=== PATIENT | female | born 1945 | race Caucasian/White ===

== ENCOUNTER 2024-10-15 11:18 | Inpatient (IN) | payer MEDICARE, BC ==
[~2024-10-15] VITALS: Ht 156.2 cm; Wt 64.6 kg
[2024-10-15] MEDS ORDERED: ONDANSETRON HCL/PF 4 MG/2 ML VIAL ONE (12:00)
[2024-10-15] MEDS: IV NS 0.9% 1,000 ML BAG IV ONE (12:04)
[2024-10-15] MEDS: ONDANSETRON HCL/PF 4 MG/2 ML VIAL IVP ONE (12:05)
[2024-10-15 13:50] LABS: APPEARANCE,URINE CLEAR (CLEAR); BILIRUBIN,URINE NEGATIVE (NEGATIVE); BLOOD, URINE 2+ Ery/uL (NEGATIVE); COLOR,URINE YELLOW (YELLOW); KETONES,URINE NEGATIVE (NEGATIVE); LEUKOCYTE ESTERASE ,URINE TRACE (NEGATIVE); NITRITE, URINE NEGATIVE (NEGATIVE); PH,URINE 7.5 (5.0-8.0); PROTEIN,URINE 2+ mg/dl (NEGATIVE); UGLUCOSE 1+ mg/dL (NEGATIVE); UROBILINOGEN,URINE 0.2 EU/dL (0.2)
[2024-10-15 13:57] LABS: ADD URINE CULTURE YES; BACTERIA,URINE Few /HPF (None Seen); SQUAMOUS EPITHELIAL CELL,UR Rare /HPF (None Seen)
[2024-10-15] MEDS: AZITHROMYCIN 500 MG in IV D5W 250 ML IV ONE (14:00)
[2024-10-15 14:19] LABS: BASOPHILS # (AUTO) 0.1 K/uL (0.0-0.2); BASOPHILS % (AUTO) 0.7 % (0.0-2.0); HEMATOCRIT 41 % (33-45); HEMOGLOBIN 13.6 g/dL (11.5-14.8); LYMPHOCYTES # (AUTO) 0.2 K/uL (0.8-4.8); LYMPHOCYTES % (AUTO) 1.3 % (20.0-44.0); MEAN CORPUSCULAR HEMOGLOBIN 36 PG (26.0-33.0); MEAN CORPUSCULAR HGB CONC 33 g/dl (31.0-36.0); MEAN CORPUSCULAR VOLUME 108 fL (82-100); MONOCYTES # (AUTO) 0.3 K/uL (0.1-1.30); MONOCYTES % (AUTO) 2.8 % (2.0-12.0); NEUTROPHILS # (AUTO) 11.7 K/uL (1.8-8.9); NEUTROPHILS % (AUTO) 95.2 % (43.0-81.0); PLATELET COUNT (AUTO) 104 K/uL (150-450); RED BLOOD CELL COUNT(AUTO) 3.82 MIL/uL (4.0-5.2); RED CELL DISTRIBUTION WIDTH 13.9 % (11.5-15.0); WHITE BLOOD COUNT (AUTO) 12.3 K/uL (4.3-11.0)
[2024-10-15] MEDS: CEFTRIAXONE 1GM BAG (ER ONLY) 1 GM/50 ML PIGGYBACK IV ONE (14:28)
[2024-10-15] MEDS: CEFTRIAXONE 1 G in IV NS 0.9% 50 ML IV ONE (14:29)
[2024-10-15 14:31] LABS: ALANINE AMINOTRANSFERASE 31 U/L (12-78); ALBUMIN 3.8 g/dL (3.4-5.0); ALKALINE PHOSPHATASE 73 U/L (46-116); ASPARTATE AMINOTRANSFERASE 20 U/L (15-37); BILIRUBIN,DIRECT 0.1 mg/dL (0.0-0.2); BILIRUBIN,TOTAL 0.5 mg/dL (0.2-1.0); CALCIUM, SERUM 9.3 mg/dL (8.5-10.1); CARBON DIOXIDE 28 mmol/L (21-32); CHLORIDE 105 mmol/L (98-107); CREATININE 0.8 mg/dL (0.6-1.3); GLUCOSE 126 mg/dL (74-106); LIPASE 29 U/L (16-77); POTASSIUM 3.9 mmol/L (3.5-5.1); SODIUM SERUM 141 mmol/L (136-145); TOTAL PROTEIN, SERUM 7.5 g/dL (6.4-8.2); UREA NITROGEN, BLOOD 19 mg/dL (7-18)
[2024-10-15 14:36] LABS: LACTIC ACID 2.5 mmol/L (0.4-2.0)
[2024-10-15] MEDS ORDERED: CREA100P6 PO (14:54)
[2024-10-15] MEDS ORDERED: LEVO112T5 PO (14:54)
[2024-10-15] MEDS ORDERED: [UNRECOGNIZED DRUG - OTHER] PO (14:54)
[2024-10-15] MEDS ORDERED: [UNRECOGNIZED DRUG - REMARK] SL (14:54)
[2024-10-15] MEDS ORDERED: [UNRECOGNIZED DRUG - OTHER] PO (14:54)
[2024-10-15] MEDS ORDERED: PRAS1TAB4 PO (14:54)
[2024-10-15] MEDS ORDERED: [UNRECOGNIZED DRUG - OTHER] PO (14:54)
[2024-10-15] MEDS ORDERED: METF-866 PO (14:54)
[2024-10-15] MEDS ORDERED: IRON BISGLYCINATE PO (14:54)
[2024-10-15] MEDS ORDERED: [UNRECOGNIZED DRUG - OTHER] PO (14:54)
[2024-10-15] MEDS ORDERED: [UNRECOGNIZED DRUG - CODE] PO (14:54)
[2024-10-15] MEDS ORDERED: SACC250C PO (14:54)
[2024-10-15] MEDS ORDERED: [UNRECOGNIZED DRUG - OTHER] PO (14:54)
[2024-10-15] MEDS ORDERED: [UNRECOGNIZED DRUG - OTHER] PO (14:54)
[2024-10-15] MEDS ORDERED: [UNRECOGNIZED DRUG - OTHER] PO (14:54)
[2024-10-15] MEDS ORDERED: [UNRECOGNIZED DRUG - OTHER] SL (14:54)
[2024-10-15] MEDS ORDERED: HYDR-4316 PO (14:54)
[2024-10-15] MEDS ORDERED: ACET600C PO (14:54)
[2024-10-15] MEDS ORDERED: [UNRECOGNIZED DRUG - OTHER] PO (14:54)
[2024-10-15] MEDS ORDERED: [UNRECOGNIZED DRUG - OTHER] PO (14:54)
[2024-10-15] MEDS ORDERED: ATOR40TA PO (14:54)
[2024-10-15] MEDS ORDERED: CHOL100062 PO (14:54)
[2024-10-15] MEDS ORDERED: SERT50TA PO (14:54)
[2024-10-15] MEDS ORDERED: MELA3TAB41 PO (14:54)
[2024-10-15] MEDS ORDERED: NIAC500T40 PO (14:54)
[2024-10-15] MEDS ORDERED: UBID200C32 PO (14:54)
[2024-10-15] MEDS ORDERED: HYDR20TA23 PO (14:54)
[2024-10-15] MEDS ORDERED: MODAFINIL PO (14:54)
[2024-10-15] MEDS ORDERED: [UNRECOGNIZED DRUG - OTHER] PO (14:54)
[2024-10-15] MEDS ORDERED: ASCO100058 PO (14:54)
[2024-10-15] MEDS ORDERED: MAG PO (14:54)
[2024-10-15] MEDS ORDERED: LOSA50TA39 PO (14:54)
[2024-10-15] MEDS ORDERED: 5-HTP PO (14:54)
[2024-10-15] MEDS ORDERED: FAMO20TA80 PO (14:54)
[2024-10-15] MEDS ORDERED: METHYL PROTECT PO (14:54)
[2024-10-15] MEDS ORDERED: [UNRECOGNIZED DRUG - OTHER] PO (14:54)
[2024-10-15] MEDS ORDERED: PROG100C15 PO (14:54)
[2024-10-15] MEDS ORDERED: ONDANSETRON HCL/PF 4 MG/2 ML VIAL IVP PRN (15:30)
[2024-10-15] MEDS ORDERED: ACETAMINOPHEN 325 MG TABLET PO PRN (15:30)
[2024-10-15] MEDS: IV NS 0.9% 1,000 ML IV PRN (16:22)
[2024-10-15] MEDS: AZITHROMYCIN 500 MG in IV D5W 250 ML IV SCH (16:40)
[2024-10-15] MEDS: CEFTRIAXONE 1 G in IV D5W 50 ML IV SCH (16:40)
[2024-10-15] MEDS: ENOXAPARIN SODIUM 40 MG/0.4 ML DISP.SYRIN SQ SCH (16:44)
[2024-10-15 16:49] LABS: BAND % (MANUAL) 1 % (0.0-5.0); BASOPHILS % (MANUAL) 0 % (0.0-2.0); EOSINOPHILS % (MANUAL) 0 % (0-4); LYMPHOCYTES % (MANUAL) 1 % (16-48); MONOCYTES % (MANUAL) 2 % (0-11.0); NEUTROPHILS % (MANUAL) 96 (42-76)
[2024-10-15 16:50] LABS: PLATELET ESTIMATE DECREASED
[2024-10-15] MEDS: GUAIFENESIN/D-METHORPHAN HB 5 ML UDC PO PRN (19:17)
[2024-10-15 20:00] VITALS: BP 119/69; TEMP 98.8; O2SAT 95
[2024-10-16] VITALS (8 sets, daily range): BP systolic 134–142; BP diastolic 71–75; TEMP 97.6–98.1; O2SAT 93–99
[2024-10-16 06:24] LABS: CALCIUM, SERUM 8.8 mg/dL (8.5-10.1); CREATININE 0.5 mg/dL (0.6-1.3); MAGNESIUM 2.1 mg/dL (1.8-2.4); PHOSPHORUS 2.4 mg/dL (2.5-4.9); POTASSIUM 3.7 mmol/L (3.5-5.1)
[2024-10-16 06:43] LABS: BASOPHILS % (AUTO) 0.1 % (0.0-2.0); EOSINOPHILS % (AUTO) 0.1 % (0.0-6.0); HEMATOCRIT 34 % (33-45); HEMOGLOBIN 11.5 g/dL (11.5-14.8); LYMPHOCYTES # (AUTO) 0.3 K/uL (0.8-4.8); LYMPHOCYTES % (AUTO) 3.4 % (20.0-44.0); MEAN CORPUSCULAR HEMOGLOBIN 36 PG (26.0-33.0); MEAN CORPUSCULAR HGB CONC 34 g/dl (31.0-36.0); MEAN CORPUSCULAR VOLUME 107 fL (82-100); MONOCYTES # (AUTO) 0.4 K/uL (0.1-1.30); MONOCYTES % (AUTO) 3.9 % (2.0-12.0); NEUTROPHILS # (AUTO) 9.4 K/uL (1.8-8.9); NEUTROPHILS % (AUTO) 92.5 % (43.0-81.0); PLATELET COUNT (AUTO) 95 K/uL (150-450); RED BLOOD CELL COUNT(AUTO) 3.17 MIL/uL (4.0-5.2); RED CELL DISTRIBUTION WIDTH 14.1 % (11.5-15.0); WHITE BLOOD COUNT (AUTO) 10.2 K/uL (4.3-11.0)
[2024-10-16] MEDS ORDERED: LEVOTHYROXINE SODIUM 112 MCG TABLET PO SCH (09:00)
[2024-10-16] MEDS ORDERED: CALCIUM CARB PO SCH (09:00)
[2024-10-16] MEDS ORDERED: [UNRECOGNIZED DRUG - OTHER] PO SCH (09:00)
[2024-10-16] MEDS ORDERED: PRASTERONE PO SCH (09:00)
[2024-10-16] MEDS: LEVOTHYROXINE SODIUM 112 MCG TABLET PO SCH (09:30)
[2024-10-16 10:41] LABS: LYMPHOCYTES % (MANUAL) 4 % (16-48); MONOCYTES % (MANUAL) 3 % (0-11.0); NEUTROPHILS % (MANUAL) 93 (42-76); PLATELET ESTIMATE DECREASED
[2024-10-16 10:42] LABS: ANISOCYTOSIS 1+
[2024-10-16] MEDS: MODAFINIL 100 MG TABLET PO SCH (10:54)
[2024-10-16] MEDS: ASCORBIC ACID 500 MG TABLET PO SCH (10:55)
[2024-10-16] MEDS: CHOLECALCIFEROL (VITAMIN D 3) 400 UNIT TABLET PO SCH (10:55)
[2024-10-16] MEDS: LOSARTAN POTASSIUM 50 MG TABLET PO SCH (10:56)
[2024-10-16] MEDS: HYDROCORTISONE 20 MG TABLET PO SCH (11:03)
[2024-10-16] MEDS: METFORMIN XR 500 MG TAB.SR.24H PO SCH (11:04)
[2024-10-16] MEDS: IPRATROPIUM NEB FS 0.5 MG/2.5 ML AMPUL.NEB NEB SCH (12:00)
[2024-10-16] MEDS: ACETYLCYSTEINE 10% SOLN 400 MG/4 ML VIAL NEB SCH (12:00)
[2024-10-16] MEDS: ALBUTEROL HALF STRENGTH 1.25 MG/3 ML VIAL.NEB NEB SCH (12:00)
[2024-10-16] MEDS: CEFEPIME 2 GM in IV D5W 100 ML IV SCH (13:58)
[2024-10-16] MEDS: HYDROCORTISONE 5 MG TABLET PO SCH (14:08)
[2024-10-16] MEDS: K PHOS NEUTRAL 250 MG TABLET PO ONE (17:53)
[2024-10-16] MEDS: SERTRALINE HCL 50 MG TABLET PO SCH (21:09)
[2024-10-16] MEDS: ATORVASTATIN 40 MG TABLET PO SCH (21:09)
[2024-10-16] MEDS: FAMOTIDINE (20 MG) 20 MG TABLET PO SCH (21:09)
[2024-10-17] VITALS (16 sets, daily range): BP systolic 135–187; BP diastolic 74–96; TEMP 97.7–98.4; O2SAT 92–98
[2024-10-17 07:17] LABS: CREATININE 0.7 mg/dL (0.6-1.3); PHOSPHORUS 1.8 mg/dL (2.5-4.9)
[2024-10-17 07:44] LABS: BASOPHILS % (AUTO) 0.1 % (0.0-2.0); EOSINOPHILS % (AUTO) 0.1 % (0.0-6.0); HEMATOCRIT 34 % (33-45); HEMOGLOBIN 11.7 g/dL (11.5-14.8); LYMPHOCYTES # (AUTO) 0.2 K/uL (0.8-4.8); MEAN CORPUSCULAR HEMOGLOBIN 37 PG (26.0-33.0); MEAN CORPUSCULAR HGB CONC 34 g/dl (31.0-36.0); MEAN CORPUSCULAR VOLUME 108 fL (82-100); MONOCYTES # (AUTO) 0.5 K/uL (0.1-1.30); NEUTROPHILS # (AUTO) 7.2 K/uL (1.8-8.9); NEUTROPHILS % (AUTO) 90.8 % (43.0-81.0); PLATELET COUNT (AUTO) 90 K/uL (150-450); RED BLOOD CELL COUNT(AUTO) 3.17 MIL/uL (4.0-5.2); RED CELL DISTRIBUTION WIDTH 14.9 % (11.5-15.0); WHITE BLOOD COUNT (AUTO) 7.9 K/uL (4.3-11.0)
[2024-10-17 10:50] LABS: ANISOCYTOSIS 1+; LYMPHOCYTES % (MANUAL) 3 % (16-48); MONOCYTES % (MANUAL) 5 % (0-11.0); NEUTROPHILS % (MANUAL) 92 (42-76); PLATELET ESTIMATE DECREASED
[2024-10-17] MEDS: POTASSIUM CHLORIDE 20 MEQ TAB.PRT.SR PO SCH (11:03)
[2024-10-17] MEDS: QUETIAPINE FUMARATE 25 MG TABLET PO ONE (15:18)
[2024-10-17] MEDS: BACITRACIN ZINC OINT PACKET 1 EA PACKET TP SCH (16:33)
[2024-10-17] MEDS: K PHOS NEUTRAL 250 MG TABLET PO ONE (18:00)
[2024-10-17] MEDS ORDERED: CLONIDINE HCL 0.1 MG TABLET PO PRN (23:30)
[2024-10-17] MEDS: CLONIDINE HCL 0.1 MG TABLET PO PRN (23:34)
[2024-10-18] VITALS (15 sets, daily range): BP systolic 143; BP diastolic 82; TEMP 98.3; O2SAT 91–99
[2024-10-18 07:21] LABS: BASOPHILS % (AUTO) 0.2 % (0.0-2.0); EOSINOPHILS % (AUTO) 0.2 % (0.0-6.0); HEMATOCRIT 31 % (33-45); HEMOGLOBIN 10.6 g/dL (11.5-14.8); LYMPHOCYTES # (AUTO) 0.4 K/uL (0.8-4.8); MEAN CORPUSCULAR HEMOGLOBIN 37 PG (26.0-33.0); MEAN CORPUSCULAR HGB CONC 35 g/dl (31.0-36.0); MEAN CORPUSCULAR VOLUME 107 fL (82-100); MONOCYTES # (AUTO) 0.7 K/uL (0.1-1.30); MONOCYTES % (AUTO) 10.6 % (2.0-12.0); NEUTROPHILS # (AUTO) 5.1 K/uL (1.8-8.9); PLATELET COUNT (AUTO) 103 K/uL (150-450); RED BLOOD CELL COUNT(AUTO) 2.85 MIL/uL (4.0-5.2); RED CELL DISTRIBUTION WIDTH 14.9 % (11.5-15.0); WHITE BLOOD COUNT (AUTO) 6.2 K/uL (4.3-11.0)
[2024-10-18 07:43] LABS: CALCIUM, SERUM 8.9 mg/dL (8.5-10.1); CREATININE 0.5 mg/dL (0.6-1.3); MAGNESIUM 1.9 mg/dL (1.8-2.4); PHOSPHORUS 2.6 mg/dL (2.5-4.9); POTASSIUM 3.8 mmol/L (3.5-5.1)
[2024-10-18] MEDS: BENZONATATE 100 MG CAPSULE PO PRN (08:06)
[2024-10-19] VITALS (16 sets, daily range): BP systolic 135–155; BP diastolic 83–88; TEMP 97.9–98.4; O2SAT 94–99
[2024-10-19 08:12] LABS: BASOPHILS % (AUTO) 0.2 % (0.0-2.0); EOSINOPHILS # (AUTO) 0.1 K/uL (0.0-0.7); HEMATOCRIT 33 % (33-45); HEMOGLOBIN 11.2 g/dL (11.5-14.8); LYMPHOCYTES # (AUTO) 0.3 K/uL (0.8-4.8); LYMPHOCYTES % (AUTO) 4.8 % (20.0-44.0); MEAN CORPUSCULAR HEMOGLOBIN 36 PG (26.0-33.0); MEAN CORPUSCULAR HGB CONC 34 g/dl (31.0-36.0); MEAN CORPUSCULAR VOLUME 106 fL (82-100); MONOCYTES # (AUTO) 0.7 K/uL (0.1-1.30); MONOCYTES % (AUTO) 10.4 % (2.0-12.0); NEUTROPHILS # (AUTO) 5.2 K/uL (1.8-8.9); NEUTROPHILS % (AUTO) 83.6 % (43.0-81.0); PLATELET COUNT (AUTO) 115 K/uL (150-450); RED BLOOD CELL COUNT(AUTO) 3.08 MIL/uL (4.0-5.2); RED CELL DISTRIBUTION WIDTH 14.4 % (11.5-15.0); WHITE BLOOD COUNT (AUTO) 6.2 K/uL (4.3-11.0)
[2024-10-19 08:25] LABS: CALCIUM, SERUM 9.1 mg/dL (8.5-10.1); CREATININE 0.5 mg/dL (0.6-1.3); MAGNESIUM 1.9 mg/dL (1.8-2.4); PHOSPHORUS 2.3 mg/dL (2.5-4.9); POTASSIUM 3.4 mmol/L (3.5-5.1)
[2024-10-19] MEDS: POTASSIUM CHLORIDE 20 MEQ TAB.PRT.SR PO ONE (09:02)
[2024-10-19] MEDS: SENNOSIDES/DOCUSATE SODIUM 1 TAB TABLET PO SCH (10:41)
[2024-10-19] MEDS: K PHOS NEUTRAL 250 MG TABLET PO ONE (16:00)
[2024-10-19] MEDS ORDERED: QUETIAPINE FUMARATE 25 MG TABLET PO PRN (18:00)
[2024-10-20] VITALS (14 sets, daily range): BP systolic 117–156; BP diastolic 86–98; TEMP 97.7–98.2; O2SAT 95–100
[2024-10-20 06:22] LABS: BASOPHILS % (AUTO) 0.1 % (0.0-2.0); EOSINOPHILS # (AUTO) 0.1 K/uL (0.0-0.7); EOSINOPHILS % (AUTO) 0.9 % (0.0-6.0); HEMATOCRIT 33 % (33-45); HEMOGLOBIN 11.4 g/dL (11.5-14.8); LYMPHOCYTES # (AUTO) 0.5 K/uL (0.8-4.8); MEAN CORPUSCULAR HEMOGLOBIN 36 PG (26.0-33.0); MEAN CORPUSCULAR HGB CONC 34 g/dl (31.0-36.0); MEAN CORPUSCULAR VOLUME 107 fL (82-100); MONOCYTES # (AUTO) 0.7 K/uL (0.1-1.30); MONOCYTES % (AUTO) 11.1 % (2.0-12.0); NEUTROPHILS # (AUTO) 5.4 K/uL (1.8-8.9); NEUTROPHILS % (AUTO) 80.9 % (43.0-81.0); PLATELET COUNT (AUTO) 122 K/uL (150-450); RED BLOOD CELL COUNT(AUTO) 3.14 MIL/uL (4.0-5.2); RED CELL DISTRIBUTION WIDTH 15.4 % (11.5-15.0); WHITE BLOOD COUNT (AUTO) 6.7 K/uL (4.3-11.0)
[2024-10-20 07:02] LABS: CALCIUM, SERUM 9.6 mg/dL (8.5-10.1); CREATININE 0.4 mg/dL (0.6-1.3); PHOSPHORUS 2.9 mg/dL (2.5-4.9); POTASSIUM 3.3 mmol/L (3.5-5.1)
[2024-10-20 10:17] LABS: ANISOCYTOSIS 1+; BASOPHILS % (MANUAL) 0 % (0.0-2.0); EOSINOPHILS % (MANUAL) 0 % (0-4); LYMPHOCYTES % (MANUAL) 7 % (16-48); MONOCYTES % (MANUAL) 9 % (0-11.0); NEUTROPHILS % (MANUAL) 84 (42-76); PLATELET ESTIMATE DECREASED
[2024-10-20] MEDS: POTASSIUM CHLORIDE 20 MEQ TAB.PRT.SR PO SCH (10:50)
[2024-10-20] MEDS ORDERED: DOXY100T2 PO (13:05)
[2024-10-21] VITALS (15 sets, daily range): BP systolic 137–145; BP diastolic 80–91; TEMP 97.8–98.2; O2SAT 92–100
[2024-10-21 07:15] LABS: CALCIUM, SERUM 9.3 mg/dL (8.5-10.1); CREATININE 0.5 mg/dL (0.6-1.3); POTASSIUM 3.5 mmol/L (3.5-5.1)
== END 2024-10-21 21:40 | disposition home health service (06) | DRG 871 ==
LOC: ER 11:20 → MED 14:46
PROVIDERS: ADMIT Nurse Practitioner Acute Care; ATTEND Nurse Practitioner Acute Care
DX: A41.50 Gram-negative sepsis, unspecified (principal); J69.0 Pneumonitis due to inhalation of food and vomit; N39.0 Urinary tract infection, site not specified; G91.0 Communicating hydrocephalus; E87.20 Acidosis, unspecified; E27.40 Unspecified adrenocortical insufficiency; E11.9 Type 2 diabetes mellitus without complications; Z98.2 Presence of cerebrospinal fluid drainage device; Z85.51 Personal history of malignant neoplasm of bladder; Z85.118 Personal history of other malignant neoplasm of bronchus and lung; M41.9 Scoliosis, unspecified; M19.90 Unspecified osteoarthritis, unspecified site; E78.00 Pure hypercholesterolemia, unspecified; Z88.2 Allergy status to sulfonamides; Z88.5 Allergy status to narcotic agent; B96.89 Other specified bacterial agents as the cause of diseases classified elsewhere; Z86.69 Personal history of other diseases of the nervous system and sense organs; E03.9 Hypothyroidism, unspecified; K44.9 Diaphragmatic hernia without obstruction or gangrene; N20.0 Calculus of kidney; Z86.11 Personal history of tuberculosis; Z87.01 Personal history of pneumonia (recurrent); R33.9 Retention of urine, unspecified; R13.10 Dysphagia, unspecified; F29 Unspecified psychosis not due to a substance or known physiological condition; G47.00 Insomnia, unspecified
CPT/HCPCS: 36415; 70450-TC; 70490-TC; 71045-TC; 71250-TC; 80048-TC; 80076-TC; 81001; 83605-TC; 83690-TC; 83735-TC; 83880; 84100-TC; 84484-TC; 85025-TC; 87040-TC; 87086-TC; 92526; 92611-TC; 94760-TC; 94761-TC; 94799-TC; 97110-TC; 97112-TC; 97116-TC; 97530-TC; A4223; G0378; J0456; J0692; J0696; J1650; J2405; J7030; J7050; J7060

== ENCOUNTER 2025-02-14 05:50 | Emergency (ER) | payer MEDICARE, BC ==
[~2025-02-14] VITALS: Ht 165.1 cm; Wt 57.6 kg
[~2025-02-14 05:50] MED LIST: 5-HTP PO; ACET600C PO; ASCO100058 PO; ATOR40TA PO; CHOL100062 PO; CREA100P6 PO; DOXY100T2 PO; FAMO20TA80 PO; HYDR-4316 PO; HYDR20TA23 PO; IRON BISGLYCINATE PO; LEVO112T5 PO; LOSA50TA39 PO; MAG PO; MELA3TAB41 PO; METF-866 PO; METHYL PROTECT PO; MODAFINIL PO; NIAC500T40 PO; PRAS1TAB4 PO; PROG100C15 PO; SACC250C PO; SERT50TA PO; UBID200C32 PO; [UNRECOGNIZED DRUG - CODE] PO; [UNRECOGNIZED DRUG - OTHER] PO; [UNRECOGNIZED DRUG - OTHER] PO; [UNRECOGNIZED DRUG - OTHER] PO; [UNRECOGNIZED DRUG - OTHER] PO; [UNRECOGNIZED DRUG - OTHER] PO; [UNRECOGNIZED DRUG - OTHER] PO; [UNRECOGNIZED DRUG - OTHER] PO; [UNRECOGNIZED DRUG - OTHER] PO; [UNRECOGNIZED DRUG - OTHER] PO; [UNRECOGNIZED DRUG - OTHER] PO; [UNRECOGNIZED DRUG - OTHER] PO; [UNRECOGNIZED DRUG - OTHER] SL; [UNRECOGNIZED DRUG - REMARK] SL
[2025-02-14 07:05] LABS: APPEARANCE,URINE SLIGHTLY CLOUDY (CLEAR); BILIRUBIN,URINE 1+ (NEGATIVE); BLOOD, URINE NEGATIVE Ery/uL (NEGATIVE); COLOR,URINE DARK YELLOW (YELLOW); KETONES,URINE NEGATIVE (NEGATIVE); LEUKOCYTE ESTERASE ,URINE 1+ (NEGATIVE); NITRITE, URINE POSITIVE (NEGATIVE); PROTEIN,URINE 2+ mg/dl (NEGATIVE); UGLUCOSE TRACE mg/dL (NEGATIVE)
[2025-02-14 07:07] LABS: BASOPHILS # (AUTO) 0.1 K/uL (0.0-0.2); BASOPHILS % (AUTO) 1.3 % (0.0-2.0); EOSINOPHILS # (AUTO) 0.1 K/uL (0.0-0.7); EOSINOPHILS % (AUTO) 1.5 % (0.0-6.0); HEMATOCRIT 35 % (33-45); HEMOGLOBIN 11.2 g/dL (11.5-14.8); LYMPHOCYTES # (AUTO) 0.6 K/uL (0.8-4.8); LYMPHOCYTES % (AUTO) 8.7 % (20.0-44.0); MEAN CORPUSCULAR HEMOGLOBIN 35 PG (26.0-33.0); MEAN CORPUSCULAR HGB CONC 33 g/dl (31.0-36.0); MEAN CORPUSCULAR VOLUME 106 fL (82-100); MONOCYTES # (AUTO) 0.4 K/uL (0.1-1.30); MONOCYTES % (AUTO) 5.4 % (2.0-12.0); NEUTROPHILS # (AUTO) 5.5 K/uL (1.8-8.9); NEUTROPHILS % (AUTO) 83.1 % (43.0-81.0); PLATELET COUNT (AUTO) 117 K/uL (150-450); RED BLOOD CELL COUNT(AUTO) 3.25 MIL/uL (4.0-5.2); RED CELL DISTRIBUTION WIDTH 14.6 % (11.5-15.0); WHITE BLOOD COUNT (AUTO) 6.6 K/uL (4.3-11.0)
[2025-02-14 07:07] LABS: ADD URINE CULTURE YES; BACTERIA,URINE Few /HPF (None Seen); SQUAMOUS EPITHELIAL CELL,UR Rare /HPF (None Seen)
[2025-02-14 07:22] LABS: CALCIUM, SERUM 9.3 mg/dL (8.5-10.1); CARBON DIOXIDE 25 mmol/L (21-32); CHLORIDE 101 mmol/L (98-107); CREATININE 0.7 mg/dL (0.6-1.3); GLUCOSE 169 mg/dL (74-106); POTASSIUM 3.3 mmol/L (3.5-5.1); SODIUM SERUM 135 mmol/L (136-145); UREA NITROGEN, BLOOD 25 mg/dL (7-18)
[2025-02-14 07:25] LABS: ALANINE AMINOTRANSFERASE 32 U/L (12-78); ALBUMIN 3.7 g/dL (3.4-5.0); ALKALINE PHOSPHATASE 51 U/L (46-116); ASPARTATE AMINOTRANSFERASE 20 U/L (15-37); BILIRUBIN,DIRECT 0.2 mg/dL (0.0-0.2); BILIRUBIN,TOTAL 0.9 mg/dL (0.2-1.0)
[2025-02-14] MEDS: CEFTRIAXONE 1GM BAG (ER ONLY) 1 GM/50 ML PIGGYBACK IV ONE (08:30)
[2025-02-14] MEDS ORDERED: CEFTRIAXONE 1GM BAG (ER ONLY) 50 ML IV ONE (08:35)
[2025-02-14] MEDS ORDERED: APIX2.5T PO (09:01)
[2025-02-14] MEDS ORDERED: AMOX500C2 PO (09:01)
[2025-02-14] MEDS ORDERED: DONE10TA11 PO (09:01)
[2025-02-14] MEDS ORDERED: CEPH750C9 PO (11:21)
[2025-02-14 12:09] VITALS: BP 101/64; TEMP 97.8; O2SAT 96
== END 2025-02-14 12:09 | disposition left against medical advice (07) ==
LOC: ER 05:57
DX: R55 Syncope and collapse (principal); N39.0 Urinary tract infection, site not specified; G91.9 Hydrocephalus, unspecified; I10 Essential (primary) hypertension; E78.00 Pure hypercholesterolemia, unspecified; Z79.01 Long term (current) use of anticoagulants; Z79.890 Hormone replacement therapy; Z79.899 Other long term (current) drug therapy; Z85.51 Personal history of malignant neoplasm of bladder; Z79.84 Long term (current) use of oral hypoglycemic drugs; Z88.2 Allergy status to sulfonamides; Z88.5 Allergy status to narcotic agent; Z98.2 Presence of cerebrospinal fluid drainage device
CPT/HCPCS: 99285; 71250; 96374; 71045; 93005; 70450; 74176; 85025; 80048; 87086; 80076; 81001; 36415; 84484 ×2; 83880; 82962; J0696